=== PATIENT | male | born 1970 ===

== ENCOUNTER 2023-04-05 00:30 | Emergency (ER) | payer BC, SELFPAY ==
[2023-04-05 00:30] VITALS: BMI 46.4
[2023-04-05 00:45] VITALS: BP 150/93
[2023-04-05 00:48] LABS: % Basophils 0.5 % (0-2); % Eosinophils 1.7 % (0-6); % Immature Granulocytes 0.4 % (0-0.5); % Lymphocytes 18.7 % (20.5-51.1); % Monocytes 5.9 % (1.7-9.3); % Neutrophils 72.8 % (42.2-75.2); Absolute Basophils 0.1 10^3/uL (0-0.2); Absolute Eosinophils 0.2 10^3/uL (0-0.7); Absolute Monocytes 0.6 10^3/uL (0.1-0.6); Absolute Neutrophils 7.8 10^3/uL (1.4-6.5); Hemoglobin 14.7 g/dL (13.0-18.0); Mean Corp Hgb Conc. 35.9 g/dL (33.0-37.0); Mean Corpuscular Hgb 29.6 pg (27.0-31.0); Mean Corpuscular Volume 82.5 fL (80.0-94.0); Nucleated Red Blood Cells % 0 % (-); Platelet Count 278 10^3/uL (130-400); Red Blood Cell Count 4.97 10^6/uL (4.70-6.10); Red Cell Dist. Width 13.4 % (11.5-14.5); White Blood Cell Count 10.7 10^3/uL (4.8-10.8)
--- NOTE | 2023-04-05 00:48 | ED.GENMED ---
History of Present Illness
<JEAN-PAUL Che - Last Filed: 04/05/23 17:51>
General
Chief Complaint: Cardiac Symptoms
Source: patient
Exam Limitations: none
Time Seen by Provider: 04/05/23 00:38
Travel History
Have you had any contact with someone who has COVID-19?: No
Do you have any symptoms of coronavirus? Fever > 100 degrees, chills, cough, shortness of breath, sore throat, loss of taste or smell, muscle aches, or headache?: No
History of Present Illness
History of Present Illness:
This is a 53 year old male that comes in with c/o left shoulder pain into neck. States that he was in bed and he was laying on his right shoulder. States that he started with pain in the left shoulder that went into the neck and upper chest. States
that it hurt when he took a deep breath. States that he was SOB with going up the steps. States that he also had a headache. Denies any fever, chills, abd pain, nausea, vomiting, diarrhea, dizziness, urinary burning.
Past History
<JEAN-PAUL Che - Last Filed: 04/05/23 17:51>
Past History
ED Past Medical History: Arrthythmia (Atrial fib), HTN, Hypercholesterolemia, Psychiatric (Anxiety) and Other (Renal calculus, )
ED Past Surgical History: Cardiac (Ablation) and Other (Hernia)
Social History
Tobacco: Former smoker
Alcohol: None
Personal:
Living: with family
Review of Systems
<JEAN-PAUL Che - Last Filed: 04/05/23 17:51>
Review of Systems
All Other Systems: ROS reviewed and negative except as documented in HPI and ROS
Constitutional: Reports no symptoms; Denies fever or chills
EENT: Reports no symptoms
Respiratory: Reports trouble breathing; Denies cough
Cardiac: Reports chest pain
ABD/GI: Reports no symptoms; Denies abdominal pain, nausea, vomiting or diarrhea
: Reports no symptoms
Musculoskeletal: Reports other (left shoulder discomfort)
Skin: Reports no symptoms
Neurological: Reports headache; Denies dizzy
Psychiatric: Reports no symptoms
Phy Exam
<JEAN-PAUL Che - Last Filed: 04/05/23 17:51>
General Physical Exam
General Presentation: well appearing and no apparent distress
General age: appears stated age
General Skin: warm and dry
General Habitus: normal
General Mental: alert
General Hydration: dry mucous membranes
ENT Exam
ENT Exam: TM's normal, pharynx normal and neck supple
Eye Exam
Eye Exam: EOMI
Cardiovascular Exam
Cardiovascular Exam: regular rate/rhythm, no murmur and normal peripheral pulses
Pulmonary Exam
Pulmonary Exam: lungs clear, no respiratory distress, no rales, chest non tender, no crackles, no rhonchi, no wheezing and no cough
Gastrointestinal Exam
Gastrointestinal Exam: normal bowel sounds, non tender, soft, no organomegaly, no pulsatile mass, non distended and other (Obese)
Musculoskeletal Exam
Musculoskeletal Exam: full ROM and no edema
Skin Exam
Skin Exam: normal color, warm/dry, no rash and no petechia
Psychiatric Exam
Psychiatric Exam: normal mood/affect
Course
<JEAN-PAUL Che - Last Filed: 04/05/23 17:51>
Orders/Labs/Results
Orders:
Orders
04/05/23 00:31
Electrocardiogram (*1) Urgent
Reason for Study: Atrial Fibrillation
EKG- Treatment ONCE
04/05/23 00:41
CMP [Comprehensive Metabolic Panel] Urgent
Complete Blood Count/With Diff Urgent
Troponin I Urgent
04/05/23 00:46
EKG- Treatment ONCE
04/05/23 00:47
Ketorolac [Toradol] 30 mg IV NOW STA
CR Chest - 2 Views Urgent
Comment:
Reason For Exam: Chest pain
04/05/23 03:40
Electrocardiogram (*1) Urgent
Reason for Study: Chest Pain
Other Reason for Exam: Repeat with Troponin
04/05/23 04:10
Troponin I Urgent
Abnormal Lab Results
04/05/23
00:41
Absolute Neuts (auto) 7.8 H 10^3/uL
(1.4-6.5)
Lymphocytes % 18.7 L %
(20.5-51.1)
Glucose 119 H mg/dl
(70-99)
ALT 64 H U/L
(0-50)
04/05/23 00:41
04/05/23 00:41
Glucose nonfasting. ALT mildly elevated. Troponin <0.012
Second Troponin <0.012
Vital Signs
Initial and Last Documented VS:
Initial Vital Signs
Pulse Resp Pulse Ox
84 22 98
04/05/23 00:34 04/05/23 00:34 04/05/23 00:34
Last Documented Vital Signs
Pulse Resp BP Pulse Ox
80 10 152/95 96
04/05/23 05:15 04/05/23 05:00 04/05/23 04:00 04/05/23 04:00
<Ranjan Jauregui MD - Last Filed: 04/05/23 05:31>
Orders/Labs/Results
Orders:
Orders
04/05/23 00:31
Electrocardiogram (*1) Urgent
Reason for Study: Atrial Fibrillation
EKG- Treatment ONCE
04/05/23 00:41
CMP [Comprehensive Metabolic Panel] Urgent
Complete Blood Count/With Diff Urgent
Troponin I Urgent
04/05/23 00:46
EKG- Treatment ONCE
04/05/23 00:47
Ketorolac [Toradol] 30 mg IV NOW STA
CR Chest - 2 Views Urgent
Comment:
Reason For Exam: Chest pain
04/05/23 03:40
Electrocardiogram (*1) Urgent
Reason for Study: Chest Pain
Other Reason for Exam: Repeat with Troponin
04/05/23 04:10
Troponin I Urgent
Abnormal Lab Results
04/05/23
00:41
Absolute Neuts (auto) 7.8 H 10^3/uL
(1.4-6.5)
Lymphocytes % 18.7 L %
(20.5-51.1)
Glucose 119 H mg/dl
(70-99)
ALT 64 H U/L
(0-50)
04/05/23 00:41
04/05/23 00:41
Vital Signs
Initial and Last Documented VS:
Initial Vital Signs
Pulse Resp Pulse Ox
84 22 98
04/05/23 00:34 04/05/23 00:34 04/05/23 00:34
Last Documented Vital Signs
Pulse Resp BP Pulse Ox
80 10 152/95 96
04/05/23 05:15 04/05/23 05:00 04/05/23 04:00 04/05/23 04:00
<JEAN-PAUL Che - Last Filed: 04/05/23 17:51>
MDM/Problems Addressed
Differential Diagnosis Includes:
Musculoskeletal pain, Acute coronary syndrome
MDM/Problems Addressed:
This is a 53 year old male that comes in with c/o left shoulder and neck pain. State that he was in bed and laying on his right side when he awoke with left shoulder and neck pain. States that there is some discomfort in the upper chest and that he
felt SOB going up the steps.
Will get labs, chest x-ray and medicate for pain.
Chronic conditions affecting care:
NA
Acute Exacerbation and/or Progression of Chronic Illness:
NA
<JEAN-PAUL Che - Last Filed: 04/05/23 17:51>
*Pulse Oximetry
Patient hypoxic: no
*EKG
Interpreted by ED Provider?: Yes
Heart Rate: 82
Rate: normal
Rhythm: sinus
[place]: normal axis
Interval: normal interval
QRS Pattern: normal QRS
Ischemia: no ischemia (Checked by Dr De lToro)
*Drawer Fitter Interpretation
Rate: normal
Heart Rate: 82
Rhythm: sinus
*Critical Care Note
Total Time (30-74mins, 75-104mins- exclusive of procedures): Not Applicable
ED Attending Note
<JEAN-PAUL Che - Last Filed: 04/05/23 17:51>
-
Portions of this chart may have been created with voice recognition software.� Occasional wrong word or��sound alike� substitutions may have occurred due to the inherent limitations of voice recognition software.
<Ranjan Jauregui MD - Last Filed: 04/05/23 05:31>
ED Attending Note
Patient seen and examined by attending physician: Yes
ED Attending Note:
I have seen and evaluated the patient with a [id number] encounter. I have spoken to the advance practicer provider and involved in the medical history, the physical exam, medical decision making.
Evaluation and management service: agree unless noted differently below.
Results interpretation: agree unless noted differently below.
Focused HPI: 53-year-old male with history as documented presents for evaluation of left shoulder pain that was radiating to the neck, jaw, chest. Started while he was laying on his side in bed and had been consistent. He was given Toradol here
with improvement. No shortness of breath, nausea, vomiting, diaphoresis.
Physical exam: Laying in bed awake and alert not in distress. Hypertensive but otherwise normal vitals. No cardiac rubs gallops or murmurs. Lungs clear to auscultation bilaterally. No edema in his extremities, extremities warm and well-perfused.
Medical Decision Makin-year-old male presents for evaluation of shoulder pain rating to the neck, jaw, chest that improved with Toradol here. EKG no STEMI. Labs reviewed and CBC and CMP are unremarkable, serial troponins are negative. Chest
x-ray reviewed and shows no acute disease. Patient feeling better will discharge to follow-up with PCP and cardiology. Discussed return precautions all questions answered.
Discharge Plan
Departure
Patient Disposition: Home (Routine Discharge)
Date of Disposition: 04/05/23
Time of Disposition: 05:18
Patient with high blood pressure during this ER visit?: Yes
Condition: Good
Covid-19: Not Applicable
Discharge Problem:
Chest pain
Instructions: Chest Pain DCA Follow Up
Prescriptions:
No Action
metoprolol succinate 100 mg Tablet Extended Release 24 Hr
100 mg PO DAILY
aspirin 81 mg Tablet
81 mg PO DAILY
bupropion HCl 200 mg Tablet Sustained-Release 12 Hr
200 mg PO DAILY
rosuvastatin 20 mg Tablet
20 mg PO HS
Referrals:
Carmen Fulton MD [Family Provider] - Call in 1-3 days for appt
Activity Restrictions/Additional Instructions:
Thank you for visiting the Emergency Department at [facility].
1. Please schedule a follow up appointment as directed. Call first thing tomorrow morning to make an appointment.
2. If indicated, please take your medications as instructed and indicated on discharge paperwork.
3. If any of your symptoms do not improve, or persist, or become more severe within 6-12 hours, please return to the emergency department for further care.
4. Please return to the emergency department if you develop a headache, neck pain/stiffness, fever greater than 100.4F, chest pain, shortness of breath, persistent nausea, vomiting, slurred speech, difficulty walking, numbness/tingling, weakness,
signs of infection or any other symptoms that are worrisome to you.
Please call [phone] if you have any questions.
Interventions
Interventions:
*Risk Screen - Suicide Last Done: 04/05/23 00:34
*General Assessment Last Done: 04/05/23 00:52
*Neglect/Abuse Screening Last Done: 04/05/23 00:34
ED- Fall Risk Assessment Last Done: 04/05/23 00:52
*ED COVID-19 Vaccine History Last Done: 04/05/23 00:52
*Nursing Disposition Last Done: 04/05/23 05:35
ED- Pulmonary Assessment Last Done: 04/05/23 00:52
ED- Cardiac Assessment Last Done: 04/05/23 00:52
Discharge Date and Time
Discharge Date/Time: 04/05/23 05:35
[2023-04-05] MEDS: TORADOL 30 MG IV (00:56)
[2023-04-05 01:00] VITALS: BP 150/94
[2023-04-05 01:03] LABS: ALT (SGPT) 64 U/L (0-50); AST (SGOT) 55 U/L (17-59); Albumin 4.2 g/dl (3.5-5.0); Alkaline Phosphatase 90 U/L (38-126); Blood Urea Nitrogen 17 mg/dl (9-20); Calcium 9.3 mg/dl (8.4-10.2); Carbon Dioxide 26 mmol/L (22-30); Chloride 104 mmol/L (98-107); Estimated Creatinine Clearance > 125 ml/min; Glucose 119 mg/dl (70-99); Potassium 4.3 mmol/L (3.5-5.1); Sodium 137 mmol/L (135-145); Total Bilirubin 0.7 mg/dl (0.2-1.3); Total Protein 7.2 g/dl (6.3-8.2); eGFR > 60.00
[2023-04-05 01:33] VITALS: BP 147/87
[2023-04-05 02:00] VITALS: BP 129/81
[2023-04-05 03:00] VITALS: BP 119/78
[2023-04-05 04:00] VITALS: BP 152/95
[2023-04-05 04:12] LABS: Troponin I < 0.012 ng/ml
--- NOTE | 2023-04-05 04:15 | DOWNTIME ---
There was a [employer] Downtime on 04/05/2023 from 0111 to 04/05/2023 at 0405. Downtime documentation of patient's care, including medication administrations, has been reconciled in the electronic record per guidelines. Refer to the
patient's paper chart under the miscellaneous tab to see printed paper medication records and downtime forms.
[2023-04-05 05:06] LABS: Troponin I < 0.012 ng/ml
== END 2023-04-05 05:35 | disposition home or self-care (01) ==
LOC: EMR 00:30
PROVIDERS: Clinical Nurse Specialist Family Health; Emergency Medicine; EMERGENCY PHYSICIAN Emergency Medicine; FAMILY PHYSICIAN Internal Medicine
DX: R07.89 Other chest pain (principal); I10 Essential (primary) hypertension; Z87.891 Personal history of nicotine dependence
CPT/HCPCS: 99285; 96374; 71046; 80053; 84484; 85025; 93005

== ENCOUNTER → 2023-12-09 09:52 | Outpatient (REF) | payer BC, SELFPAY | LOC: RAD 09:52 | PROVIDERS: ATTENDING PHYSICIAN Physician Assistant | DX: R91.8 Other nonspecific abnormal finding of lung field (principal) | CPT/HCPCS: 71250 ==

== ENCOUNTER 2024-09-05 18:54 | Emergency (ER) | payer BC, SELFPAY ==
[2024-09-05 19:01] VITALS: BP 132/86
--- NOTE | 2024-09-05 19:34 | ED.MUSCINJ ---
HPI-Injury
General
Chief Complaint: Musculo-Skeletal Complaint
Source: patient
Exam Limitations: none
Time Seen by Provider: 09/05/24 19:17
History of Present Illness-Injury
Initial Injury comments:
54-year-old [id number] male presents complaining of right elbow discomfort and weakness. He was trying to move a heavy vending machine when he heard pops in his elbow. Since then he has been having difficulty bending his elbow. No other
complaints at this time
Past History
Past History
ED Past Medical History: Arrthythmia (Atrial fib), HTN, Hypercholesterolemia, Psychiatric (Anxiety) and Other (Renal calculus, )
ED Past Surgical History: Cardiac (Ablation) and Other (Hernia)
Social History
Tobacco: Former smoker
Alcohol: None
Personal:
Living: with family
Phy Exam
Physical Exam
Physical Exam:
General: Well-appearing male no acute respiratory distress
HEENT: Normocephalic atraumatic
Musculoskeletal exam: Right elbow slightly tender over the distal bicep anteriorly. The distal bicep tendon is not as easily palpable as it is on the contralateral side. Is increased pain with passive pronation.
Vascular: 2+ radial pulse
Injury Course
Orders/Labs/Results
Orders:
Orders
09/05/24 19:04
CR Elbow - Right Min 3 Views Urgent
Comment:
Reason For Exam: pain
09/05/24 19:33
Sling Right-Treatment ONCE
MDM/Problems Addressed
Differential Diagnosis Includes:
Right elbow injury. He heard pops. Clinical exam concerning for possible distal bicep tendon injury. X-rays were taken through triage which I personally reviewed and are negative for acute finding. Patient placed in a sling and will be advised
to follow-up with orthopedics for further evaluation of possible bicep tendon injury
*Pulse Oximetry
SaO2: 95
Oxygen Mode of Delivery: Room air
Patient hypoxic: no
*Critical Care Note
Total Time (30-74mins, 75-104mins- exclusive of procedures): Not Applicable
ED Attending Note
-
Portions of this chart may have been created with voice recognition software.� Occasional wrong word or��sound alike� substitutions may have occurred due to the inherent limitations of voice recognition software.
Discharge Plan
Departure
Patient Disposition: Home (Routine Discharge)
Date of Disposition: 09/05/24
Time of Disposition: 19:37
Patient with high blood pressure during this ER visit?: No
Discharge Problem:
distal bicep tendon injury
Instructions: Muscle and Bone Pain (DC)
Prescriptions:
No Action
metoprolol succinate 100 mg Tablet Extended Release 24 Hr
100 mg PO DAILY
aspirin 81 mg Tablet
81 mg PO DAILY
bupropion HCl 200 mg Tablet Sustained-Release 12 Hr
200 mg PO DAILY
rosuvastatin 20 mg Tablet
20 mg PO HS
Activity Restrictions/Additional Instructions:
Use sling. You may ice for swelling. You can take Tylenol or ibuprofen for pain. Follow-up with orthopedics for further evaluation
Interventions
Interventions:
*Risk Screen - Suicide Last Done: 09/05/24 19:01
*General Assessment Last Done: 09/05/24 19:01
*Neglect/Abuse Screening Last Done: 09/05/24 19:01
Discharge Date and Time
Print Language: [place]
[2024-09-05 19:40] VITALS: BP 162/100
== END 2024-09-05 19:46 | disposition home or self-care (01) ==
LOC: EMR 18:54
PROVIDERS: EMERGENCY PHYSICIAN Emergency Medicine; FAMILY PHYSICIAN Family Medicine
DX: S46.201A Unspecified injury of muscle, fascia and tendon of other parts of biceps, right arm, initial encounter (principal); X50.9XXA Other and unspecified overexertion or strenuous movements or postures, initial encounter; E78.00 Pure hypercholesterolemia, unspecified; I10 Essential (primary) hypertension; Z87.891 Personal history of nicotine dependence
CPT/HCPCS: 99283; 73080

== ENCOUNTER → 2024-09-10 07:39 | Outpatient (REF) | payer BC, SELFPAY ==
[2024-09-10 09:12] LABS: Hematocrit 44.3 % (39.0-52.0); Hemoglobin 14.9 g/dL (13.0-18.0); Mean Corp Hgb Conc. 33.6 g/dL (33.0-37.0); Mean Corpuscular Volume 83.3 fL (80.0-94.0); Nucleated Red Blood Cells % 0 % (-); Platelet Count 250 10^3/uL (130-400); Red Cell Dist. Width 13.7 % (11.5-14.5)
[2024-09-10 09:37] LABS: Blood Urea Nitrogen 15 mg/dl (9-20); Calcium 9.5 mg/dl (8.4-10.2); Carbon Dioxide 26 mmol/L (22-30); Chloride 104 mmol/L (98-107); Glucose 91 mg/dl (70-99); Potassium 4.5 mmol/L (3.5-5.1); Sodium 139 mmol/L (135-145); eGFR > 60.00
== END ==
LOC: REG 07:39
PROVIDERS: ATTENDING PHYSICIAN Physician Assistant Surgical
DX: Z01.818 Encounter for other preprocedural examination (principal)
CPT/HCPCS: 36415; 80048; 85025

== ENCOUNTER 2024-09-18 06:20 | Day surgery (SDC) | payer BC, SELFPAY ==
[2024-09-18 10:58] VITALS: BP 134/85
[2024-09-18] MEDS: CELEBREX 200 MG PO (11:07)
[2024-09-18] MEDS: TYLENOL 1000 MG PO (11:08)
[2024-09-18] MEDS: NORMOSOL-R/PLASMALYTE-A 1000 IV (11:08)
[2024-09-18 15:18] VITALS: BP 134/85
[2024-09-18 15:50] VITALS: BP 127/81
[2024-09-18 16:10] VITALS: BP 115/79
[2024-09-18 16:20] VITALS: BP 140/92
== END 2024-09-18 16:32 | disposition home or self-care (01) ==
LOC: SDS 06:20
PROVIDERS: ATTENDING PHYSICIAN Orthopaedic Surgery Hand Surgery
DX: S46.211A Strain of muscle, fascia and tendon of other parts of biceps, right arm, initial encounter (principal); X58.XXXA Exposure to other specified factors, initial encounter
CPT/HCPCS: 24342; 93005